=== PATIENT | female | born 1990 | race Two or more races ===

== ENCOUNTER 2024-03-20 18:57 | Emergency (ER) | payer MEDICAID, SELFPAY ==
[2024-03-20 18:57] VITALS: BMI 27.4
[2024-03-20 19:07] VITALS: BP 110/72; PULSE 88; RESP 20; TEMP 36.9; O2SAT 97
--- NOTE | 2024-03-20 19:35 | EDNOTE_ITS ---
ED Skin Abcess FB-RME/HPI General Chief complaint: Skin/Abscess/Foreign Body Stated complaint: WOUND VAC TO BACK CAME OUT Time Seen by Provider: 03/20/24 19:02 Source: patient, RN notes reviewed and old records reviewed Arrival date/time: 03/20/24 18:57 Mode of arrival: ambulatory Limitations: no limitations RME / HPI RME / HPI narrative: 34yof presents to ED for evaluation of wound VAC dressing. Patient reports excision of skin lesion left buttocks 4 days ago in [place]. Today the wound VAC monitor has been beeping 2/2 dressing coming off/not suctioning. Patient was not given any supplies for wound dressing changes. No other symptoms reported. Patient has follow-up appointment with surgeon next . Related Data Home Medications ?Medication ?Instructions ?Recorded ?Confirmed vit no.95-ferrous 1 tab PO QDAY 03/21/18 10/09/18 fumarate 28 mg-folic acid 800 mcg tablet () Allergies Allergy/AdvReac Type Severity Reaction Status Date / Time No Known Allergies Allergy Verified 03/20/24 18:59 Review of Systems Review of Systems Systems Reviewed: All systems reviewed, normal except as documented Constitutional Constitutional: Denies fever(s) Integumentary/Breasts Skin/Breast: Denies erythema, Denies pruritus and Denies rash Past Medical History Surgical History SURGICAL: Positive Section OTHER SURGICAL HX: Excision of skin lesion Social History SMOKING STATUS: Never smoker SUBSTANCE USE: does not use ALCOHOL: Never Past Medical History Comments PMH COMMENT: Denies past medical history ED Exam General Limitations: Present no limitations General appearance: Present alert and in no apparent distress Head Head exam: Present atraumatic and normocephalic Eye Eye exam: Present normal appearance, PERRL and EOMI ENT ENT exam: Present normal exam and mucous membranes moist Neck Neck exam: Present normal inspection and full ROM Chest Chest inspection: Present normal inspection and symmetric chest wall rise Respiratory Respiratory exam: Present normal lung sounds bilaterally; Absent respiratory distress Cardiovascular Cardiovascular exam: Present regular rate and normal rhythm Extremities Exam Extremities exam: Present normal inspection and full ROM Back Exam Back 1 view image: 2 1. Wound bandage/dressing with connection to wound VAC tubing, few areas of dressing are peeling up. No surrounding erythema or rash Neurological Exam Neurological exam: Present alert and oriented X3 Psychiatric Psychiatric exam: Present normal affect and normal mood Skin Skin exam: Present warm, dry and intact Course Quality Measures none Vital Signs Vital signs: Vital Signs Temperature 98.5 F 03/20/24 19:07 Pulse Rate 88 03/20/24 19:07 Respiratory Rate 20 03/20/24 19:07 Blood Pressure 110/72 03/20/24 19:07 Pulse Oximetry (%) 97 03/20/24 19:07 Oxygen Delivery Method Room Air 03/20/24 19:07 Skin / Abscess / Foreign Body MDM Narrative MDM Narrative:: 34yof presents to ED for evaluation of wound VAC dressing. Patient reports excision of skin lesion left buttocks 4 days ago in [place]. Today the wound VAC monitor has been beeping 2/2 dressing coming off/not suctioning. Patient was not given any supplies for wound dressing changes. No other symptoms reported. Patient has follow-up appointment with surgeon next . Additional dressing (tegaderm, mastisol) placed on top of wound VAC dressing and now working appropriately. Encouraged follow-up with surgeon as scheduled. Stable for discharge, RTED precautions given. Patient data External records reviewed:: [facility] previous records (05/31/2018 ED visit for nasal bone fracture) Clinical information provided by:: patient Social determinants that could affect healthcare access:: none Patient has the following chronic illnesses:: None How is presenting disease/condition affected by chronic disease/condition?: no chronic disease Evaluation data The following diagnostics were reviewed and interpreted by me:: other (specify) (None) Lab and/or radiology exams considered but not ordered:: None Interpretation Summary: na Medications / Prescriptions Medications or Prescriptions considered but not ordered:: No antibiotics recommended at this time Medication administrations:: None Consultations Consultation(s) initiated? (list below): No Diagnosis Skin/Abscess Differential Diagnosis: other (Wound VAC problem, cellulitis, abscess, contact dermatitis) Most likely diagnosis given after review of the tests above:: Wound VAC problem Admission Indicated Admission indicated?: not indicated Admission Request Was there a request for admission?: No Disposition Plan Disposition Plan: Discharge Discharge Attestation Discharge Attestation: The patient and all family members were given an opportunity to ask questions and understood the discharge instructions. Discharge instructions specifically effects, indications for sooner follow up or return to the emergency department, and the expected course of current diagnosis. Patient condition: Stable Discharge Plan Plan Patient Disposition: HOME (Self Care) Patient condition on transfer: Stable Prescriptions/Referrals Prescriptions/Med Rec: No Action PNV cmb#95-ferrous fumarate-FA [] 28 mg iron- 800 mcg Tablet 1 tab PO QDAY Referrals: No Primary/Family,Physician [Primary Care Provider] - In 1 week Problem List Clinical Impression: Encounter for management of wound VAC Patient/Caregiver Discharge Instructions Additional Instructions: Follow-up with your specialist in the following week as scheduled. Print Language: Vietnamese Stand Alone Forms: [employer]fs[employer] Award Info., Patient Portal Info Letter PA/SETUP TECHNICIAN Supervising Physician PA/SETUP TECHNICIAN Supervising Physician: Marcelle
== END 2024-03-20 20:07 | disposition home or self-care (01) ==
PROVIDERS: Emergency Provider Emergency Medicine
DX: Z48.01 Encounter for change or removal of surgical wound dressing (principal)
CPT/HCPCS: 99282

== ENCOUNTER 2024-09-18 17:00 | Emergency (ER) | payer MEDICAID, SELFPAY ==
[2024-09-18 17:26] VITALS: BP 131/85; PULSE 86; RESP 16; TEMP 37.1; O2SAT 98; BMI 28.1
--- NOTE | 2024-09-18 17:31 | PD.EDRME ---
Rapid Medical Screening Exam RME Arrival date/time: 09/18/24 17:00 34-year-old female with no known medical history presents to the emergency room with a chief complaint of a sore throat x 1 day I have greeted and performed a focused initial assessment of this patient. A comprehensive ED assessment and evaluation of the patient, analysis of all test results, and completion of the medical decision making process will be conducted by additional ED providers. Chief Complaint: Dental/Oral/Throat Vital signs: Vital Signs Temperature 98.7 F 09/18/24 17:26 Pulse Rate 86 09/18/24 17:26 Respiratory Rate 16 09/18/24 17:26 Blood Pressure 131/85 H 09/18/24 17:26 Pulse Oximetry (%) 98 09/18/24 17:26 Oxygen Delivery Method Room Air 09/18/24 17:26 Vital signs reviewed by provider: Yes
[2024-09-18 19:00] LABS: Strep A Rapid Negative (Negative)
--- NOTE | 2024-09-18 20:07 | EDNOTE_ITS ---
<Statement entered by Ailyn Luna MD - 09/21/24 18:57> As co-signing physician, I was present and available for consult prn. I concur with the plan and care as documented by the midlevel provider. ED Dental RME/HPI General Chief complaint: Dental/Oral/Throat Stated complaint: wants her throat checked Time Seen by Provider: 09/18/24 19:16 Arrival date/time: 09/18/24 17:00 RME / HPI RME / HPI Narrative: 34-year-old female with no known medical history presents to the emergency room with a chief complaint of a sore throat x 1 day. Patient denies any fever denies any cough denies any nasal congestion denies any other complaints Related Data Home Medications ?Medication ?Instructions ?Recorded ?Confirmed vit no.95-ferrous 1 tab PO QDAY 03/21/18 08/0 03/29 fumarate 28 mg-folic acid 800 mcg tablet () Allergies Allergy/AdvReac Type Severity Reaction Status Date / Time No Known Allergies Allergy Verified 09/18/24 17:07 Review of Systems Review of Systems Narrative Review of Systems: Review of system reviewed and within normal limits except mentioned in HPI ED Exam Narrative Physical exam: VITAL SIGNS: Reviewed. GENERAL APPEARANCE: Alert and interactive, follows commands, no acute distress, HEAD AND FACE: Non-traumatic. ENT: PERRL, pink conjunctivitis, eyelid no trauma, Mucous membrane moist. NECK: Supple, nontender, no nuchal rigidity. CHEST: No tenderness, no crepitus, no paradoxical movement, no retractions. LUNGS: Clear, well ventilated, symmetric, no rales, no wheezing, no ronchi, no stridor, good breath sounds bilaterally. HEART: Regular rate, regular rhythm, no murmur, no gallops. ABDOMEN: Soft, positive bowel sounds, nondistended, no guarding, nontender, no rebound, no masses, RECTAL: Deferred. GENITAL: Deferred. NEUROLOGICAL: Gross motor function intact sensory function intact, Appropriate for age. MUSCULOSKELETAL: low back nontender, full range of motion. EXTREMITIES: Nontender, full range of motion. SKIN: Color pink, dry, no rash, no lacerations, no abrasions, no contusions. LYMPHATICS: Deferred. Course Quality Measures none Orders Category Date Time Status Strep A Rapid Stat Lab 09/18/24 17:49 Completed Vital Signs Vital signs: Vital Signs Temperature 98.7 F 09/18/24 17:26 Pulse Rate 86 09/18/24 17:26 Respiratory Rate 16 09/18/24 17:26 Blood Pressure 131/85 H 09/18/24 17:26 Pulse Oximetry (%) 98 09/18/24 17:26 Oxygen Delivery Method Room Air 09/18/24 17:26 Dental / Oral MDM Narrative MDM Narrative:: 34-year-old female with no known medical history presents to the emergency room with a chief complaint of a sore throat x 1 day. Patient denies any fever denies any cough denies any nasal congestion denies any other complaints Patient tested negative for strep Results discussed with the patient. Patient data External records reviewed:: None Clinical information provided by:: patient Social determinants that could affect healthcare access:: none Patient has the following chronic illnesses:: None How is presenting disease/condition affected by chronic disease/condition?: uneffected by Evaluation data The following diagnostics were reviewed and interpreted by me:: lab results Lab and/or radiology exams considered but not ordered:: None Interpretation Summary: None Medications / Prescriptions Medications or Prescriptions considered but not ordered:: None Medication administrations:: None Consultations Consultation(s) initiated? (list below): No Diagnosis Dental Differential Diagnosis: other (Strep throat, sore throat,) Most likely diagnosis given after review of the tests above:: URI Admission Indicated Admission indicated?: not indicated Admission Request Was there a request for admission?: No Disposition Plan Disposition Plan: Discharge Discharge Attestation Discharge Attestation: The patient and all family members were given an opportunity to ask questions and understood the discharge instructions. Discharge instructions specifically effects, indications for sooner follow up or return to the emergency department, and the expected course of current diagnosis. Patient condition: Stable Discharge Plan Plan Patient Disposition: HOME (Self Care) Discharge Disposition comment: Stable Prescriptions/Referrals Prescriptions/Med Rec: No Action PNV cmb#95-ferrous fumarate-FA [] 28 mg iron- 800 mcg Tablet 1 tab PO QDAY Referrals: Sindy Busby PA-C [Primary Care Provider] - In 1 week Problem List Clinical Impression: URI (upper respiratory infection) Patient/Caregiver Discharge Instructions Discharge Activity: activity as tolerated Education Materials: ED URI, Viral, No Abx (Adult) Additional Instructions: Thank you for the opportunity for serving you today. You are stable for discharged . You are advised to: Follow-up with your PCP in 1 to 2 days Return to ED for worsening of symptoms Print Language: Micronesian Stand Alone Forms: Afsaneh Award Info., Patient Portal Info Letter PA/PRODUCT DEVELOPMENT SCIENTIST Supervising Physician LE/CL[place] Supervising Physician: MD Clau
[2024-09-18 20:17] VITALS: RESP 12
== END 2024-09-18 20:18 | disposition home or self-care (01) ==
PROVIDERS: Nurse Practitioner Family; Emergency Provider Emergency Medicine; PCP Specialist
DX: J06.9 Acute upper respiratory infection, unspecified (principal)
CPT/HCPCS: 87651; 99283